=== PATIENT | male | born 1980 | race Caucasian/White ===

== ENCOUNTER 2017-02-28 10:17 | Emergency (ER) | payer SELFPAY, OTHER ==
[2017-02-28] MEDS: IBUPROFEN 600 MG TAB PO (12:41)
== END 2017-02-28 14:45 | disposition home or self-care (01) ==
LOC: FTE 10:17
DX: M54.6 Pain in thoracic spine (principal); M25.511 Pain in right shoulder; M25.531 Pain in right wrist; M79.641 Pain in right hand
CPT/HCPCS: 29125; 71010; 72040; 73030-RT; 73110-RT; 73130-RT; 99284-25